=== PATIENT | male | born 1925 | race Caucasian/White ===

== ENCOUNTER → 2016-06-13 | Outpatient (CLI) | payer MEDICARE, BC ==
--- NOTE | 2016-06-13 12:40 | US ---
EXAMINATION TYPE: US kidneys/renal and bladder DATE OF EXAM: 06/13/2016 10:34 AM COMPARISON: 09/23/2013 CLINICAL HISTORY: 89-year-old male N13.9 Obstructive and reflux uropathy. Patient states having no pa in. TECHNIQUE: Multiple sonographic images of the kidneys and bladder were obtained. FINDINGS: EXAM MEASUREMENTS: Right Kidney: 9.0 x 5.4 x 4.6 cm Left Kidney: 10.3 x 4.4 x 4.5 cm Post void images taken Right Kidney: Moderate hydronephrosis seen. Echogenic focus with shadowing in lower pole = 0.6 cm. Ec hogenic focus with shadowing seen in the upper ureter - 1.5 cm. Small 1 cm upper pole simple cyst. Left Kidney: No hydronephrosis. Small 9 mm upper pole simple cyst. Bladder: Distended. Wall is borderline thickened with trabeculations. Pleural-based irregularity is more pronounced along the right lateral wall. There is a 1 cm dependent calculus. Only the left ureteral jet is seen. Post Void Residual Volume: 159.3 mL IMPRESSION: 1. A 1.5 cm calculus in the upper right ureter with moderate obstructive uropathy. The right ureteral jet is absent. 2. Additional 6 mm nonobstructive right lower pole renal calculus and a dependent 1 cm bladder stone. 3. The bladder has a trabeculated appearance suggesting wall hypertrophy and chronic bladder outlet o bstruction. There is also elevated post void bladder volume (160 mL) compatible with urinary retentio n. 4. Mural based irregularity is slightly more pronounced along the right lateral wall of the bladder. Suspect greater degree of trabeculations here. This can be reassessed in 3 - 6 months. Correlate with urinalysis and urine cytology meanwhile. Arrangements will be made to have the doctor's office contacted following the dictation.
== END | disposition home or self-care (01) ==
LOC: RADUSWWP 09:13
PROVIDERS: ATTEND Internal Medicine
DX: N13.9 Obstructive and reflux uropathy, unspecified (principal); N21.0 Calculus in bladder; N20.0 Calculus of kidney
CPT/HCPCS: 76770

== ENCOUNTER → 2016-06-20 | Outpatient (CLI) | payer MEDICARE, BC ==
--- NOTE | 2016-06-20 14:37 | XR ---
EXAMINATION TYPE: XR KUB DATE OF EXAM: 06/20/2016 2:30 PM COMPARISON: 02/17/2014 HISTORY: Right kidney stone TECHNIQUE: One view abdominal series FINDINGS: The osseous structures are intact. The bowel gas pattern is nonspecific. Hypertrophic and degenerati ve change of the spine. Postsurgical change involving the hips with heterotopic soft tissue ossificat ion. Lucency with regard to the right acetabulum may be related to surgery. Right kidney: There is an oblong calcification measuring 14 x 8 mm likely within the UPJ. Additional 7 mm rounded calcification adjacent to the L3-4 disc interspace likely within the right ureter. Calcific density measuring 4 mm overlying the upper pole right kidney may represent additional stone or represent bowel content. Left kidney: 3 mm calcification is seen between the left 12th and 11th ribs suspicious for renal ston e. Pelvis: Pelvic calcifications are nonspecific but likely vascular. Central calcification could repres ent a chronic bladder calculus but appears stable. IMPRESSION: 1. Nonspecific abdomen. 2. 1.4 cm right UPJ calcification. 3. 7 mm right paraspinal calcification is round. Could be in the course of the right ureter. Correlat e clinically.
== END ==
LOC: RADXRMAIN 14:14
PROVIDERS: ATTEND Urology
DX: N28.89 Other specified disorders of kidney and ureter (principal)
CPT/HCPCS: 74000

== ENCOUNTER → 2016-06-21 | Outpatient (CLI) | payer MEDICARE, BC ==
--- NOTE | 2016-06-21 10:49 | CT ---
EXAMINATION TYPE: CT abdomen pelvis wo con DATE OF EXAM: 06/21/2016 10:36 AM COMPARISON: 01/07/2014 INDICATION: Microscopic hematuria DLP: 916 mGycm, Automated exposure control for dose reduction was used. CONTRAST: 0 mL of Omnipaque 300. Study performed without Oral Contrast TECHNIQUE: Axial images were obtained from above the diaphragm to the pubic rami in the axial plane a t 5 mm thick sections. Reconstructed images are reviewed on the computer in the coronal plane. FINDINGS: Limited CT sections are obtained the lung bases. The lung bases are clear. Coronary artery calcific ation is present. Calcifications within the descending thoracic aorta. Small hiatal hernia is not exc luded. CT ABDOMEN: Liver: Normal Spleen: Normal Pancreas: Normal Adrenal glands: The adrenal glands are normal. Gallbladder: Normal Kidneys: No masses are evident. There is mild right hydronephrosis. No cysts are present. Multiple c alcifications are present on the right. This would include a 0.2 cm calcification at the inferior toby e right kidney, a 0.6 cm calcification posterior lateral inferior right kidney, a 1.0 centimeter calc ification in the mid right kidney, a posterior mid right kidney calcification measuring 0.4 cm a 0.3 similar calcification in the lateral upper kidney. There is mild hydronephrosis and proximal right hy droureter. This appears to terminate within the proximal ureter without evidence of an obstructing st one. 8 distal 0.3 cm right ureteral stone is not excluded. There is a 0.5 cm calcification in the midline which may be within urinary bladder within the distal ureterovesical junction. Beam hardening artifac t however limits evaluation of the pelvis. There is a 0.4 cm calcification in the anterior left mid kidney. A 0.5 cm calcification is in the sup erior anterior left kidney. No hydronephrosis is evident. Aorta: Fusiform prominence of the distal abdominal aorta measures 3.2 cm. This terminates at the bifu rcation. Vascular calcifications in the internal/external as well as the common iliac vessels. Inferior vena cava: Normal. CT PELVIS: Lower pelvis is limited due to beam hardening artifact from bilateral hip prostheses. Bila teral inguinal hernias are present. Some loops of bowel without obstruction may be within the left in guinal hernia. Diverticular changes are within the sigmoid colon. There are loops of bowel which are incompletely di stended or lack oral contrast limiting their evaluation. Appendix: Not identified. Urinary bladder: Very limited in evaluation. Distal ureteral or intravesical calcification may be pre sent. Genitourinary structures: Prostate is slightly prominent. Osseous structures: Spondylosis is present. IMPRESSIONS: 1. Distal right ureteral stones are not excluded. However, no hydroureter beyond the most proximal p ortion is evident. An obstruction at the transition of the right ureteral dilatation is not evident. 2. Multiple bilateral nonobstructing renal stones. 3. Calcification which may be within urinary bladder although a ureteral vesicle junction stone is no t excluded. 4. Pelvic examination which would include the urinary bladder and distal ureters are very limited and nondiagnostic due to significant beam hardening artifact from bilateral hip prostheses. 5. Left inguinal hernia. 6. Fusiform prominence distal abdominal aorta measuring 3.2 cm AP dimension.
== END | disposition home or self-care (01) ==
LOC: RADCTMAIN 10:03
PROVIDERS: ATTEND Urology
DX: N20.0 Calculus of kidney (principal); K40.90 Unilateral inguinal hernia, without obstruction or gangrene, not specified as recurrent
CPT/HCPCS: 74176